=== PATIENT | female | born 1955 | race Caucasian/White ===

== ENCOUNTER 2022-05-12 10:48 | Emergency (ER) | payer MEDICARE, BC ==
[~2022-05-12] VITALS: Ht 172.7 cm; Wt 63.5 kg
--- NOTE | 2022-05-12 11:00 | NUR ---
Comfort pt 66 yrs female came from home c/o blood in stool awake and alert abdomine soft none tender to touch
--- NOTE | 2022-05-12 11:15 | NUR ---
Seen by dr. padilla
--- NOTE | 2022-05-12 11:30 | NUR ---
blood drow by lab tach
[2022-05-12 11:35] LABS: BASOPHILS % (AUTO) 0.4 % (0.0-2.0); EOSINOPHILS % (AUTO) 0.2 % (0.0-6.0); HEMATOCRIT 44 % (33-45); HEMOGLOBIN 14.7 g/dL (11.5-14.8); LYMPHOCYTES # (AUTO) 1.4 K/uL (0.8-4.8); LYMPHOCYTES % (AUTO) 20.1 % (20.0-44.0); MEAN CORPUSCULAR HGB CONC 33 g/dl (31.0-36.0); MEAN CORPUSCULAR VOLUME 92 fL (82-100); MONOCYTES # (AUTO) 0.6 K/uL (0.1-1.30); MONOCYTES % (AUTO) 8.3 % (2.0-12.0); NEUTROPHILS # (AUTO) 5.1 K/uL (1.8-8.9); PLATELET COUNT (AUTO) 219 K/uL (150-450); RED BLOOD CELL COUNT(AUTO) 4.81 MIL/uL (4.0-5.2); WHITE BLOOD COUNT (AUTO) 7.1 K/uL (4.3-11.0)
[2022-05-12 11:56] LABS: CALCIUM, SERUM 9.2 mg/dL (8.5-10.1); CREATININE 0.8 mg/dL (0.6-1.3); POTASSIUM 3.8 mmol/L (3.5-5.1)
[2022-05-12] MEDS ORDERED: CIPR-262 PO (12:29)
--- NOTE | 2022-05-12 12:57 | NUR ---
Patient discharged to home in stable condition. Written and verbal after care instructions given. Patient verbalizes understanding of instruction.
[2022-05-12 13:06] VITALS: BP 159/74
== END 2022-05-12 13:07 | disposition home or self-care (01) ==
LOC: ER 10:53
DX: R19.7 Diarrhea, unspecified (principal); E78.00 Pure hypercholesterolemia, unspecified; Z79.899 Other long term (current) drug therapy
CPT/HCPCS: 36415; 80048-TC; 85025-TC

== ENCOUNTER 2022-09-02 20:31 | Emergency (ER) | payer MEDICARE, BC ==
[~2022-09-02] VITALS: Ht 172.7 cm; Wt 61.2 kg
[~2022-09-02 20:31] MED LIST: CIPR-262 PO
[2022-09-02] MEDS ORDERED: AMOX-430 PO (22:41)
[2022-09-02] MEDS ORDERED: TDAP [DIPH/PERTUSSIS/TET] 0.5 ML VIAL IM ONE (22:42)
[2022-09-02] MEDS ORDERED: AMOX/CLAVULANATE 875 MG TABLET ONE (22:42)
[2022-09-02] MEDS ORDERED: IBUP-1955 PO (22:44)
[2022-09-02] MEDS: AMOX/CLAVULANATE 875 MG TABLET PO ONE (22:47)
[2022-09-02] MEDS: TDAP [DIPH/PERTUSSIS/TET] 0.5 ML VIAL IM ONE (22:48)
--- NOTE | 2022-09-02 22:48 | NUR ---
RAD AT BED SIDE
[2022-09-02] MEDS ORDERED: IBUPROFEN 600 MG TABLET ONE (23:20)
[2022-09-02] MEDS: IBUPROFEN 600 MG TABLET PO ONE (23:21)
--- NOTE | 2022-09-02 23:21 | NUR ---
Patient discharged to home in stable condition. Written and verbal after care instructions given. Patient verbalizes understanding of instruction.
[2022-09-02 23:22] VITALS: BP 145/80
== END 2022-09-02 23:22 | disposition home or self-care (01) ==
LOC: ER 20:35
DX: S61.451A Open bite of right hand, initial encounter (principal); E78.00 Pure hypercholesterolemia, unspecified; I73.9 Peripheral vascular disease, unspecified; Z90.49 Acquired absence of other specified parts of digestive tract; Z98.890 Other specified postprocedural states; Z60.2 Problems related to living alone; Z79.899 Other long term (current) drug therapy; W54.0XXA Bitten by dog, initial encounter; Y93.89 Activity, other specified; Y92.89 Other specified places as the place of occurrence of the external cause; Y99.8 Other external cause status
CPT/HCPCS: 73130-TC; 90715